=== PATIENT | female | born 1955 | race American Indian/Alaskan Native ===

== ENCOUNTER 2017-10-04 11:12 | Outpatient (CLI) | payer OTHER ==
--- NOTE | 2017-10-04 13:13 | Mammography Report ---
Bilateral mammogram: No previous studies available. Her CAD study utilized. Findings: Predominance adipose tissue bilaterally. 3 mm circumscribed density outer mid left breast probably 3:00 position. No microcalcification. Benign calcification right breast. Asymmetric density outer posterior left breast. Benign axillary nodes. Impression: Circumscribed density left breast and asymmetric density left breast. Comparison with previous studies is recommended. If previous studies are not available spot mag and sonographic examination. BI-RADS CATEGORY: 0 = Needs additional imaging evaluation ACR BI-RADS MAMMOGRAPHIC CODES: 0 = Needs additional imaging evaluation; 1 = Negative; 2 = Benign; 3 = Probably benign; 4 = Suspicious; 5 = Malignant; 6 = Known biopsy-proven malignancy COMMENT: 1. Dense breast tissue, i.e., adenosis, fibrocystic changes, etc., may obscure an underlying neoplasm. 2. Approximately 10% of cancers are not detected with mammography. 3. A negative mammography report should not delay biopsy if a clinically suspicious mass is present. COMMENT: Patient follow-up letters are generated in [employer].
== END 2017-10-04 11:13 | disposition home or self-care (01) ==
LOC: MAMMO 11:12
PROVIDERS: ATTEND Family Medicine
DX: Z12.31 Encounter for screening mammogram for malignant neoplasm of breast (principal)
CPT/HCPCS: 77067